=== PATIENT | female | born 1955 | race Caucasian/White ===

== ENCOUNTER 2021-06-30 08:11 | Inpatient (IN) ==
--- NOTE | 2021-06-15 10:29 | PAT Medication Instructions ---
Medication Instructions Date of Service June 15, 2021 Home Medications Medication Instructions Recorded CPAP Supplies #1 ea 12/01/18 albuterol sulfate 90 mcg/actuation 2 puffs INH Q6H PRN #3 inhaler 08/28/19 aerosol inhaler (ProAir HFA) multivitamin,[id number] (Complete Multivitamin) 1 tab PO QDD simvastatin 20 mg tablet 20 mg PO QPM Saccharomyces boulardii 250 mg capsule (Daily Probiotic (S. boulardii)) 250 mg PO QDD pantoprazole 40 mg tablet,delayed release 40 mg PO QAM zinc acetate 25 mg (zinc) capsule 25 mg PO QDD albuterol sulfate 90 mcg/actuation aerosol inhaler (ProAir HFA) 2 puffs INH Q6H PRN furosemide 20 mg tablet (Lasix) 20 mg PO DAILY PRN aspirin 325 mg tablet 325 mg PO HS diphenhydramine HCl 25 mg capsule (Benadryl) 25 mg PO HS docusate sodium 100 mg capsule (Stool Softener) 100 mg PO HS fiber 1 cap PO QAM hydrochlorothiazide 25 mg tablet 25 mg PO QAM losartan 100 mg tablet 100 mg PO QAM omega-3 fatty acids 1,000 mg capsule 1,000 mg PO QDD polyethylene glycol 3350 17 gram/dose oral powder (Miralax) 17 g PO QAM ] tiotropium bromide 2.5 mcg/actuation mist for inhalation (Spiriva Respimat) 2 puff INH QAM ASK your prescriber and surgeon aspirin 325 mg tablet 325 mg PO HS STOP taking 2 weeks before surgery omega-3 fatty acids 1,000 mg capsule 1,000 mg PO QDD DO NOT take the morning of surgery furosemide 20 mg tablet (Lasix) 20 mg PO DAILY PRN fiber 1 cap PO QAM hydrochlorothiazide 25 mg tablet 25 mg PO QAM losartan 100 mg tablet 100 mg PO QAM polyethylene glycol 3350 17 gram/dose oral powder (Miralax) 17 g PO QAM Take morning of surgery With a small sip of water, OTHERWISE NOTHING TO EAT OR DRINK AFTER MIDNIGHT: pantoprazole 40 mg tablet,delayed release 40 mg PO QAM albuterol sulfate 90 mcg/actuation aerosol inhaler (ProAir HFA) 2 puffs INH Q6H PRN (use if needed; please bring with you to hospital day of surgery if possible) tiotropium bromide 2.5 mcg/actuation mist for inhalation (Spiriva Respimat) 2 puff INH QAM Take evening before surgery multivitamin,[id number] (Complete Multivitamin) 1 tab PO QDD simvastatin 20 mg tablet 20 mg PO QPM Saccharomyces boulardii 250 mg capsule (Daily Probiotic (S. boulardii)) 250 mg PO QDD zinc acetate 25 mg (zinc) capsule 25 mg PO QDD albuterol sulfate 90 mcg/actuation aerosol inhaler (ProAir HFA) 2 puffs INH Q6H PRN (if needed) furosemide 20 mg tablet (Lasix) 20 mg PO DAILY PRN (if needed) diphenhydramine HCl 25 mg capsule (Benadryl) 25 mg PO HS docusate sodium 100 mg capsule (Stool Softener) 100 mg PO HS Other Notes If you have any questions please call us at [phone] or [phone] or [phone] or [phone]
--- NOTE | 2021-06-16 11:41 | Anesthesiology Consultation ---
Date of Service June 16, 2021 Assessment & Plan (1) Encounter for pre-operative examination: Chart Review Chart Review: Acceptable Risk for Surgery (pending surgeon ordered PCP clearance, PCP response on hypokalemia and preop Covid testing results ) and Patient seen in Pre Admission Testing - Awaiting surgeon ordered PCP clearance (scheduled 06/24/21) (will write note to PCP regarding hypokalemia) Pt has hx of COPD and gets post op wheezing at times- usually uses albuterol inhaler or does breathing treatment preop Per PAT appt on 06/16/21, patient denies any recent travel or large group a ctivities. No known Covid positive exposures or Covid related symptoms. No known Covid infection in the past 90 days. Patient is vaccinated for Covid. Preop Covid testing scheduled 06/26/21= will await results. Educated on importance of self quarantining, social distancing and wearing mask in public for the patient one week prior to surgery and after Covid testing done Teaching & Discussion Pre-Anesthesia Teaching/Discussion Notes: Instructed NPO after midnight before surgery,except medications with 15 cc of water. Medication instructions provided according to the PAT guidelines. History Surgery Operation Date: 06/30/21 12:05 Proposed Procedures p C5-C7 Anterior Cervical Discectomy and Fusion, Spinal Cord Monitoring - Robbie Coleman, Height/Weight Height: 5 ft 8 in Weight: 101.7 kg Allergies Allergy/AdvReac Type Severity Reaction Status Date / Time adhesive tape Allergy Severe Rash Verified 06/16/21 11:54 amitriptyline Allergy Severe "suicidal" Verified 06/12/21 14:22 amlodipine [From Caduet] Allergy Severe Difficulty Verified 06/12/21 14:22 Breathing atorvastatin [From Caduet] Allergy Severe Difficulty Verified 06/12/21 14:22 Breathing celecoxib [From Celebrex] Allergy Severe Difficulty Verified 06/12/21 14:22 Breathing diclofenac Allergy Severe Rash Verified 06/12/21 14:22 hydromorphone [From Dilaudid] Allergy Severe Vomiting Verified 06/12/21 14:22 Iodinated Contrast Media Allergy Severe Hives Verified 06/12/21 14:22 [Iodinated Contrast- Oral and IV Dye] iodine Allergy Severe Hives Verified 06/12/21 14:22 nortriptyline Allergy Severe "suicidal" Verified 06/12/21 14:22 oxaprozin Allergy Severe "swollen Verified 06/12/21 14:22 neck glands" phenol Allergy Severe Rash Verified 06/12/21 14:22 Medications Home Medications Medication Instructions Recorded Confirmed Last Taken multivitamin,[id number] 1 tab PO QDD 11/30/18 06/12/21 Unknown (Complete Multivitamin) simvastatin 20 mg tablet 20 mg PO QPM 11/30/18 06/12/21 Unknown CPAP Supplies #1 ea 12/01/18 06/12/21 Unknown Saccharomyces boulardii 250 mg 250 mg PO QDD cap 03/26/19 06/12/21 Unknown capsule (Daily Probiotic (S. boulardii)) pantoprazole 40 mg tablet,delayed 40 mg PO QAM 03/26/19 06/12/21 Unknown release zinc acetate 25 mg (zinc) capsule 25 mg PO QDD 03/26/19 06/12/21 Unknown albuterol sulfate 90 mcg/actuation 2 puffs INH Q6H PRN #3 inhaler 08/28/19 06/12/21 Unknown aerosol inhaler (ProAir HFA) furosemide 20 mg tablet (Lasix) 20 mg PO DAILY PRN 01/13/21 06/12/21 Unknown aspirin 325 mg tablet 325 mg PO HS 06/12/21 06/12/21 Unknown diphenhydramine HCl 25 mg capsule 25 mg PO HS 06/12/21 06/12/21 Unknown (Benadryl) docusate sodium 100 mg capsule 100 mg PO HS 06/12/21 06/12/21 Unknown (Stool Softener) fiber 1 cap PO QAM 06/12/21 06/12/21 Unknown hydrochlorothiazide 25 mg tablet 25 mg PO QAM 06/12/21 06/12/21 Unknown losartan 100 mg tablet 100 mg PO QAM 06/12/21 06/12/21 Unknown omega-3 fatty acids 1,000 mg 1,000 mg PO QDD 06/12/21 06/12/21 Unknown capsule polyethylene glycol 3350 17 17 g PO QAM 06/12/21 06/12/21 Unknown gram/dose oral powder (Miralax) tiotropium bromide 2.5 2 puff INH QAM 06/12/21 06/12/21 Unknown mcg/actuation mist for inhalation (Spiriva Respimat) Past Medical History Medical History (Updated 06/16/21 @ 15:10 by Charley Olmos PA-C) Krishnamurthy esophagus Follows routinely with EGDs Chronic obstructive pulmonary disease Rare res inhaler use > usually just when has cold Uses maintenance inhaler routinely Degenerative disc disease HX: breast cancer Right 2013 > s/p lumpectomy, axilla LN removal S/p radiation Right UE restriction Hyperlipidemia Stable with meds Hypertension Stable with meds Osteoarthritis Palpitations Hx of - 11/2019 Wore heart monitor for 21 days- no significant arrhythmias, no further issues Psoriasis Moderate to severe - has UV light therapy Sleep apnea CPAP Exercise / Class Metabolic Activity III < 4 Walking/Shop/Light housework (one flight of stairs - no chest pain, mild SOB ) Past Surgical History Surgical History H/O lymph node excision right axillary H/O melanoma excision History of ankle surgery left due to fracture with hardware removal later on History of arthroscopy left knee History of bilateral tubal ligation History of colonoscopy History of dilatation and curettage History of esophagogastroduodenoscopy (EGD) History of laminectomy lumbar History of lumpectomy of right breast History of nasal septoplasty History of root canal procedure History of tonsillectomy Past Anesthesia History No Hx of Anesthesia Complications (with exception to post op wheezing with ankle surgery - no issues subsequently as long as she uses Spirivia and albuterol inhaler preop ) and No Family Hx of Anesthesia Complications History of PONV No Hx of PONV and No Hx of Motion Sickness Social History Smoking Status: Former smoker Do You Dip or Chew Tobacco: No Smoking End Date: 1995 Hx Alcohol Use: Yes Alcohol type: beer, wine and hard liquor alcohol intake frequency: holidays/special occasions only Hx Substance Use: No substance use type: does not use Review of Systems Chronic cough- secondary to COPD -stable Occ breakthrough reflux - diet dependent Patient denies chest pain, shortness of breath, wheezing, palpitations. No hx of seizures, stroke, [place]. No hx of blood clots or blood transfusions Physical Exam Vital Signs VITALS BP 131/75 P 98 TEMP 97.9 SP02 96% RESP 16 Constitutional no acute distress ENMT Mouth: no TMJ clicking Thyromental Distance: > or= 3.5 Finger Breadths (4.0) Mallampati Class: II Capped to molars Neck + limited neck extension (significant ) Respiratory normal respiratory effort; no respiratory distress Auscultation: lungs clear to auscultation bilaterally and + diminished lung sounds (generalizede throughout ); no wheezes Cardiovascular Rate/Rhythm: regular rate and regular rhythm Heart Sounds: no murmur Vessels: no carotid bruit Musculoskeletal Spine: + pain with cervical ROM Extremities: extremities normal to inspection Psychiatric Orientation: alert Lab Results Anesthesia Preop Results Results Anesthesia Widget: WBC 8.01 K/uL (4.8-10.8) 06/16/21 Hgb 12.8 g/dL (12.0-16.0) 06/16/21 Hct 37.4 % (37-47) 06/16/21 Plt 349 K/uL (130-400) 06/16/21 Na 136 mmol/L (136-145) 06/16/21 K 3.1 mmol/L (3.5-5.1) L 06/16/21 Cl 100 mmol/L (98-107) 06/16/21 CO2 25 mmol/L (21-32) 06/16/21 BUN 19 mg/dl (6-23) 06/16/21 Creat 0.86 mg/dl (0.6-1.2) 06/16/21 Glucose Level 156 mg/dl (70-99(Fasting)) H 06/16/21 PT 11.0 Seconds (9.0-12.0) 06/16/21 PTT 24.8 Seconds (21.0-31.0) 06/16/21 INR 1.0 (0.9-1.1) 06/16/21 Urine Color Yellow 06/16/21 Urine Appearance Clear (Clear) 06/16/21 Urine pH 5.5 (4.5-7.5) 06/16/21 Urine Specific [place] 1.008 (1.000-1.030) 06/16/21 Urine Protein Negative (Negative) 06/16/21 Urine Glucose (UA) Negative (Negative) 06/16/21 Urine Ketones Negative (Negative) 06/16/21 Urine Blood Negative (Negative) 06/16/21 Urine Nitrite Negative (Negative) 06/16/21 Urine Bilirubin Negative (Negative) 06/16/21 Urine Urobilinogen Negative (Negative) 06/16/21 Urine Leukocyte Esterase Negative (Negative) 06/16/21 Blood Type B Positive 06/16/21 Antibody Screen NEGATIVE 06/16/21 Lab Comments: Hypokalemia - did send note to PCP to address at upcoming preop appt Testing Electrocardiogram Date: 02/19/21 Sinus rhythm at 83 bpm. Normal EKG per confirming provider. Chest X-Ray Date: 02/23/21 Findings: + NAD Pulmonary Function Test Date: 02/03/21 Adequate test. No obstruction. Insignificant bronchodilator response. Normal TLC. Mild decrease in DLCO which correlates for [facility]. Other Testing Event monitor 12/28/2019 = sinus rhythm. Frequent PACs. Short runs PAT: "Lightheaded"
[~2021-06-30 08:11] MED LIST: ACETAMINOPHEN 500 MG TAB PO SCH; GABAPENTIN 300 MG CAP PO SCH; LR 15ML/HR IV SCH
[2021-06-30] MEDS ORDERED: MIDAZOLAM HCL 1 MG/ML 2ML VIAL ONE (08:16)
[2021-06-30] MEDS ORDERED: fentaNYL citrate 100 MCG/2 ML VIAL ONE (08:16)
[2021-06-30] MEDS ORDERED: PHENYLEPHRINE HCL 10 MG/ML VIAL ONE (08:57)
[2021-06-30] MEDS ORDERED: ePHEDrine sulfate 50 MG/ML AMP ONE (08:57)
[2021-06-30] MEDS ORDERED: ceFAZolin 330 MG/ML 1 GM VIAL ONE (09:12)
--- NOTE | 2021-06-30 09:12 | History & Physical Bridge Note ---
Date of Service June 30, 2021 History & Physical Bridge Note I have examined the patient, reviewed the History & Physical and in the interval since the performance of the History & Physical I have noted the following changes of clinical significance: no changes noted
--- NOTE | 2021-06-30 09:13 | History & Physical Report ---
Date of Service June 30, 2021 Assessment & Plan (1) Cervical stenosis of spinal canal: Plan: C5-C7 anterior cervical discectomy and fusion History of Present Illness Chief Complaint: Neck and arm pain Primary Care Provider: Margarita Lopez PA-C This is a 65-year-old female who presents with worsening cervical radiculopathy. Of failed extensive course of nonoperative care she is here for surgical invention. Allergies Allergy/AdvReac Type Severity Reaction Status Date / Time adhesive tape Allergy Severe Rash Verified 06/30/21 08:40 amitriptyline Allergy Severe "suicidal" Verified 06/30/21 08:40 amlodipine [From Caduet] Allergy Severe Difficulty Verified 06/30/21 08:40 Breathing atorvastatin [From Caduet] Allergy Severe Difficulty Verified 06/30/21 08:40 Breathing celecoxib [From Celebrex] Allergy Severe Difficulty Verified 06/30/21 08:40 Breathing diclofenac Allergy Severe Rash Verified 06/30/21 08:40 hydromorphone [From Dilaudid] Allergy Severe Vomiting Verified 06/30/21 08:40 Iodinated Contrast Media Allergy Severe Hives Verified 06/30/21 08:40 [Iodinated Contrast- Oral and IV Dye] iodine Allergy Severe Hives Verified 06/30/21 08:40 nortriptyline Allergy Severe "suicidal" Verified 06/30/21 08:40 oxaprozin Allergy Severe "swollen Verified 06/12/21 14:22 neck glands" phenol Allergy Severe Rash Verified 06/12/21 14:22 Home Medications Medication Instructions Recorded Confirmed Type multivitamin,[id number] 1 tab PO QDD 11/30/18 06/30/21 History (Complete Multivitamin) simvastatin 20 mg tablet 20 mg PO QPM 11/30/18 06/30/21 History CPAP Supplies #1 ea 12/01/18 06/12/21 Rx Saccharomyces boulardii 250 mg 250 mg PO QDD cap 03/26/19 06/30/21 History capsule (Daily Probiotic (S. boulardii)) pantoprazole 40 mg tablet,delayed 40 mg PO QAM 03/26/19 06/30/21 History release zinc acetate 25 mg (zinc) capsule 25 mg PO QDD 03/26/19 06/30/21 History furosemide 20 mg tablet (Lasix) 20 mg PO DAILY PRN 01/13/21 06/30/21 History aspirin 325 mg tablet 325 mg PO HS 06/12/21 06/30/21 History diphenhydramine HCl 25 mg capsule 25 mg PO HS 06/12/21 06/30/21 History (Benadryl) docusate sodium 100 mg capsule 100 mg PO HS 06/12/21 06/30/21 History (Stool Softener) fiber 1 cap PO QAM 06/12/21 06/30/21 History hydrochlorothiazide 25 mg tablet 25 mg PO QAM 06/12/21 06/30/21 History losartan 100 mg tablet 100 mg PO QAM 06/12/21 06/30/21 History omega-3 fatty acids 1,000 mg 1,000 mg PO QDD 06/12/21 06/30/21 History capsule polyethylene glycol 3350 17 17 g PO QAM 06/12/21 06/30/21 History gram/dose oral powder (Miralax) tiotropium bromide 2.5 2 puff INH QAM 06/12/21 06/30/21 History mcg/actuation mist for inhalation (Spiriva Respimat) albuterol sulfate 90 mcg/actuation 2 puff INH Q6H PRN #1 inhaler 06/23/21 06/30/21 Rx aerosol inhaler (ProAir HFA) chlorpheniramine maleate 4 mg 4 mg PO Q6H #30 tab 06/23/21 06/30/21 Rx tablet (Allergy (chlorpheniramine)) fluticasone propionate 50 2 spray INTRANASAL DAILY #16 g 06/23/21 06/30/21 Rx mcg/actuation nasal spray,suspension (Flonase Allergy Relief) pseudoephedrine HCl 30 mg tablet 30 mg PO Q12H #30 tab 06/23/21 06/30/21 Rx (Sudafed) Past Med/Surg History Medical History (Updated 06/30/21 @ 09:13 by Robbie Coleman DO) Krishnamurthy esophagus Follows routinely with EGDs Chronic obstructive pulmonary disease Rare res inhaler use > usually just when has cold Uses maintenance inhaler routinely Degenerative disc disease HX: breast cancer Right 2013 > s/p lumpectomy, axilla LN removal S/p radiation Right UE restriction Hyperlipidemia Stable with meds Hypertension Stable with meds Osteoarthritis Palpitations Hx of - 11/2019 Wore heart monitor for 21 days- no significant arrhythmias, no further issues Psoriasis Moderate to severe - has UV light therapy Sleep apnea CPAP Surgical History H/O lymph node excision right axillary H/O melanoma excision History of ankle surgery left due to fracture with hardware removal later on History of arthroscopy left knee History of bilateral tubal ligation History of colonoscopy History of dilatation and curettage History of esophagogastroduodenoscopy (EGD) History of laminectomy lumbar History of lumpectomy of right breast History of nasal septoplasty History of root canal procedure History of tonsillectomy Social History Smoking Status: Former smoker Tobacco Type: Cigarettes Age Started Using Tobacco: 20; packs per day: 1.5; Years Smoked: 20; Smoking End Date: 1995; Second Hand Exposure: No; Do You Dip or Chew Tobacco: No; Tobacco Cessation Education Requested by Patient: No Hx Alcohol Use: Yes Alcohol type: beer, wine and hard liquor Hx Substance Use: No Preferred Language: Georgian Communication Ability: Effective [employer] Welder Required: No Beliefs That Will Affect Care: None Current Living Situation: Spouse Other Information That Helps Us Care for You: No Feels Safe at Home: Yes Safety Concerns: Feels Safe At This Time Assistive Devices: CPAP and Glasses Physical Exam Physical Exam: Patient is alert and oriented Heart regular rhythm Lungs clear Results & Data ([facility]) Vital Signs (Past 12 Hours) Vital Signs Temp Pulse Resp BP Pulse Ox 06/30/21 08:33 36.7 C 96 H 20 167/94 H 96
[2021-06-30] MEDS ORDERED: ONDANSETRON INJ 2 MG/ML 2 ML VIAL IV PRN ×2 (09:19→13:12)
[2021-06-30] MEDS ORDERED: ATROPINE SULFATE 0.1 MG/ML 10ML SYR IV PRN (09:19)
[2021-06-30] MEDS ORDERED: ePHEDrine sulfate 50 MG/ML AMP IV PRN (09:19)
[2021-06-30] MEDS: ceFAZolin 2000MG 2,000 MG/15 ML SYR IV SCH ×3 (09:34→18:13)
[2021-06-30] MEDS ORDERED: FLOSEAL HEMOSTATIC MATRIX 10ML TOP ONE (09:56)
[2021-06-30] MEDS ORDERED: LIDOCAINE 2% 2 ML VIAL/AMP(20MG/ML) INFIL ONE (10:10)
[2021-06-30] MEDS ORDERED: SUCCINYLCHOLINE CHLORIDE 20 MG/ML 10 ML VIAL IV ONE (10:10)
[2021-06-30] MEDS ORDERED: ONDANSETRON INJ 2 MG/ML 2 ML VIAL ONE (10:10)
[2021-06-30] MEDS ORDERED: LARYING-O-JET KIT (LTA) ONE (10:10)
[2021-06-30] MEDS ORDERED: ROCURONIUM BROMIDE 10 MG/ML 5 ML VIAL IV ONE (10:10)
[2021-06-30] MEDS ORDERED: PROPOFOL IV EMULSION 10 MG/ML 20 ML VIAL IV ONE (10:10)
[2021-06-30] MEDS ORDERED: DEXAMETHASONE SOD INJ 4 MG/ML VIAL ONE (10:10)
--- NOTE | 2021-06-30 11:16 | Operative Report ---
Post Operative Report Pre & Post Diagnosis Operation Date: 06/30/21 09:45 Pre-Op Diagnosis: Spinal Stenosis, Cervical Region Post-Op Diagnosis: Spinal Stenosis, Cervical Region I identified the patient and participated in the time-out.: Yes Procedure Operation Date: 06/30/21 09:45 Actual Procedures Anterior cervical discectomy with bilateral foraminotomies C5-C6 C6-C7. #2 anterior cervical arthrodesis C5-C6 C6-C7. #3 placement of 7 mm spiral cage at C5-C6 and 8 mm at C6-C7 both filled with I factor. #4 application of rosenberg plate and screws from C5-C7.. Surgeon Robbie Coleman, DO [employer] Supervisor None Estimated Blood Loss 10 Findings See Below The patient is 5 foot 8 inches tall weighing 100 kg with a BMI in excess of 33. The patient's body habitus did contribute to significant technical difficulty required deeper retractors longer instruments in order to perform her procedure. This at least 50% increase to the operative time. Specimens None Indications This is a 65-year-old female who presents with above-mentioned diagnosis after failing course of nonoperative care she is here for surgical invention. Description of Procedure Patient was met with identified informed consent obtained. Patient was then taken to the operative suite underwent ablation placed in the supine position the Gilson table at [place] barrel header. All bony prominences well-padded eyes inspected to ensure no external pressure placed upon the. This point the anterior cervical spine was prepped and draped in normal sterile fashion. The assistance of fluoroscopy identified the C5-6 vertebral body and a transverse incision was placed along the right anterior aspect of the cervical spine overlying this region. Blunt dissection was then carried out down to and exposing the anterior cervical spine from C5-C7. Self-retaining retractors placed. Then form a complete discectomy of C5-C6 out to the uncovertebral joints bilaterally. [place] distracting pins were utilized. Removed all posterior annular fibers longitudinal ligament bilateral foraminotomies pe rformed. Endplates burred to subcortical bleeding bone and 7 mm spiral cage filled with I factor tapped in position. Distracting apparatus was removed and I proceeded to C6-C7. Again complete discectomy performed out to the uncovertebral joints bilaterally. [place] distracting pins again utilized. Removed all posterior annular fibers longitudinal ligament bilateral foraminotomies performed. Endplates burred to subcortically bone and an 8 mm spiral cage filled with I factor tapped in position. Distracting apparatus was removed rosenberg plate and screws applied with the assistance of fluoroscopy. Incision was then copiously irrigated explored to ensure no demonstrate surrounding structures remaining bleeding. 10 round JOHANNY drain inserted. Incision was then closed with 2 Vicryl in the fascia 4 Monocryl for final skin closure. Steri-Strips dressings placed. Please note spinal cord morning was utilized at the procedure. I attest to the content of the Intraoperative Record and any orders documented therein. Any exceptions are noted below.
[2021-06-30] MEDS: fentaNYL citrate 100 MCG/2 ML VIAL IV PRN ×4 (11:40→12:52)
--- NOTE | 2021-06-30 12:08 | Fluoroscopy Report ---
INTRAOPERATIVE RADIOGRAPHS CLINICAL HISTORY: C5-C7 spinal fusion. Fluoroscopy time: 15 seconds. FINDINGS: 3 spot fluoroscopic views of the cervical spine are presented. There has been discectomy at C5-C6 and C6-C7 with anterior fusion at C5-C7. The orthopedic hardware appears intact. An endotrache al tube is in place. IMPRESSION: Intraoperative images from cervical spinal fusion surgery as above. Electronically signed by: John Vital M.D. 06/30/2021 12:06 PM
[2021-06-30] MEDS ORDERED: MoRPHine SULFATE 2 MG/ML CARP IV PRN (13:12)
[2021-06-30] MEDS ORDERED: diphenhydrAMINE Capsule 25 MG CAP PO PRN (13:12)
[2021-06-30] MEDS ORDERED: dexAMETHasone 8 MG in SYRINGE 0 ML IV PRN (13:12)
[2021-06-30] MEDS ORDERED: traMADol HCL 50 MG TABLET PO PRN (13:12)
[2021-06-30] MEDS ORDERED: FUROSEMIDE 20 MG TAB PO PRN (13:12)
[2021-06-30] MEDS ORDERED: DO NOT ADMINISTER FLU VACCINE PRN (13:12)
[2021-06-30] MEDS ORDERED: DO NOT ADMINISTER PNEUMOCOCCAL VACCINE PRN (13:12)
[2021-06-30] MEDS ORDERED: ONDANSETRON 4 MG OD TAB PO PRN (13:12)
[2021-06-30] MEDS ORDERED: ACETAMINOPHEN 1,000 MG/100 ML VIAL IV PRN (13:12)
[2021-06-30] MEDS ORDERED: RACEPINEPHRINE 2.25% NEBU SOLN 0.5 ML VIAL INH PRN (13:12)
[2021-06-30] MEDS ORDERED: ALUMINUM/MAGNESIUM SUSP 30 ML UDC PO PRN (13:12)
[2021-06-30] MEDS ORDERED: METOCLOPRAMIDE HCL INJ 5 MG/ML 2 ML VIAL IV PRN (13:12)
[2021-06-30] MEDS ORDERED: LORazepam 0.5 MG TAB PO PRN (13:12)
[2021-06-30] MEDS ORDERED: SOD PHOSPHATE/SOD BIPHOSPHATE ENEMA 132 ML BTL PR PRN (13:12)
[2021-06-30] MEDS ORDERED: bisacodyL 10 MG SUPP PR PRN (13:12)
[2021-06-30] MEDS ORDERED: ACETAMINOPHEN 500 MG TAB PO PRN (13:12)
[2021-06-30] MEDS ORDERED: LORazepam 2 MG/1 ML VIAL IV PRN (13:12)
[2021-06-30] MEDS ORDERED: MAGNESIUM HYDROXIDE SUSP 30 ML UDC PO PRN (13:12)
[2021-06-30] MEDS ORDERED: hydrOXYzine HCl 25 MG TAB PO PRN (13:12)
[2021-06-30] MEDS ORDERED: FAMOTIDINE 20 MG TAB PO PRN (13:12)
[2021-06-30] MEDS ORDERED: PROMETHAZINE HCL 12.5 MG in SODIUM CHLORIDE 0.9% 50 ML IV PRN (13:12)
[2021-06-30] MEDS ORDERED: NALOXONE HCL 0.4 MG/1 ML VIAL/CARP IV PRN (13:12)
--- NOTE | 2021-06-30 13:14 | Anesthesiology Progress Note ---
Date of Service June 30, 2021 Anesthesia Post Procedure Vital Signs Vital Signs: Temp Pulse Pulse Resp BP Pulse Ox 06/30/21 13:10 91 H 17 146/80 H 97 06/30/21 13:00 87 22 146/88 H 99 06/30/21 12:50 97.2 F L 89 20 149/78 H 97 06/30/21 12:40 86 14 144/80 H 92 06/30/21 12:30 82 14 142/78 H 99 06/30/21 12:20 81 14 141/72 H 100 06/30/21 12:10 85 18 147/77 H 100 06/30/21 12:00 86 13 113/76 100 06/30/21 11:50 84 14 137/75 100 06/30/21 11:40 83 16 140/76 97 06/30/21 11:30 87 15 147/71 H 98 06/30/21 11:22 98.1 F 83 17 134/81 98 06/30/21 08:33 98.1 F 96 H 20 167/94 H 96 Pain Intensity Right Neck: Pain Intensity: 3 Transfer of Care Handoff Completed per policy Notes Mental Status: alert / awake / arousable and participated in evaluation Patient Amnestic to Procedure: Yes Nausea / Vomiting: adequately controlled Pain: adequately controlled Airway Patency, RR, SpO2: stable & adequate BP & HR: stable & adequate Hydration State: stable & adequate Anesthetic Complications: no major complications apparent and Pt Satisfied with anesthetic care
[2021-06-30] MEDS ORDERED: oxyCODONE HCL IR 5 MG TAB (IMMEDIATE RELEASE) ONE (13:19)
[2021-06-30] MEDS: SODIUM CHLORIDE 0.9% 1000ML 1,000 ML IV SCH (15:23)
--- NOTE | 2021-06-30 15:30 | Hospitalist Consultation ---
Date of Consultation June 30, 2021 Assessment & Plan (1) Cervical stenosis of spinal canal: -Planned ACDF procedure today with Dr. Coleman without complications. Denies pain, numbness/tingling, motor deficit, chest pain, palpitations, SOB -Defer pain/IVF/abx/drain/bowel regimen management to primary team. -CBC, CMP in AM. (2) Chronic obstructive pulmonary disease: -Chronic, stable. -Continue Spiriva Respimat in the morning, albuterol inhaler as needed. -Currently on chlorpheniramine, Sudafed, Flonase for chronic cough. Will hold Sudafed and chlorpheniramine until tomorrow morning. (3) Sleep apnea: -Chronic, stable. -CPAP at night. -Settin cm of water. (4) Hypertension: -Chronic, stable. -On HCTZ and losartan at home. Hold today, may restart tomorrow. -Continue to monitor BP. (5) GERD (gastroesophageal reflux disease): -With Krishnamurthy's esophagus, follows with GI. -Continue Protonix 40 mg daily. (6) Hyperlipidemia: -Continue simvastatin 20 mg daily. (7) HX: breast cancer: -2014, s/p lumpectomy and radiation. -With occasional edema, takes Lasix 20 mg prn, reports using only a few times/month. Will hold this until tomorrow 07/01. (8) Psoriasis: -UV light therapy, no medications at this time. Supervising Physician Co-Signing Physician Notes Attending Attestation and Consult Note - Pt seen/examined, chart reviewed, care plan d/w ALMAZ Barker. I agree w/ the frausto components of her documentation. 65yo female with COPD, HTN, ROSE presented today for cervical spine anterior dis kectomy with fusion C5-C7. I saw her post-op on ortho floor. Mainly c/o soreness of neck especially on the right but denied dyspnea, chest pain, abd pain or nausea. Also c/o feeling tired. PMH/PSH/allergies/meds/sochx/famhx - reviewed VSS, no fever gen - looks tired, mildly uncomfortable, but alert neck - c-collar in place; dressings anterior neck intact and clean - no blood; drain in place heart - RRR, s1 s2 lungs - CTA b/l, mildly decreased BS bases abd - softly distended, BS+, NT ext - no edema neuro - handgrips 5/5 b/l; strength b/l legs 5/5 A/P: 1. cervical spine stenosis s/p diskectomy/fusion 2. HTN - HOLD the CHERY and HCTZ pending am labs tomorrow 3. ROSE - if patient stays for lengthy period of time will have her family bring in CPAP device 4. COPD - no flare at this time with stable O2 sats Suraj Hough MD History of Present Illness Reason for Consultation: medical management Requesting Physician: Robbie Coleman DO Attending Physician: Robbie Coleman DO History of Present Illness Patient is a 65 y/o female with a PMH of COPD, ROSE, HTN, HLD, psoriasis, breast cancer in 2014 s/p radiation, and GERD with Krishnamurthy's esophagus who presents today for scheduled C5-[address] Coleman due to worsening cervical radiculopathy. Previously had been experiencing muscle spasms, numbness/tingling in right arm down to first three digits, as well as dizziness with sudden head movements. Failed outpatient tx. She is currently resting comfortably in bed without chest pain/palpitations, SOB, weakness, numbness/tingling, motor deficits. She has mild pain at the site of her incision, notes an improvement in her RUE numbness/tingling. Without any complaints. Allergies Allergy/AdvReac Type Severity Reaction Status Date / Time adhesive tape Allergy Severe Rash Verified 06/30/21 08:40 amitriptyline Allergy Severe "suicidal" Verified 06/30/21 08:40 amlodipine [From Caduet] Allergy Severe Difficulty Verified 06/30/21 08:40 Breathing atorvastatin [From Caduet] Allergy Severe Difficulty Verified 06/30/21 08:40 Breathing celecoxib [From Celebrex] Allergy Severe Difficulty Verified 06/30/21 08:40 Breathing diclofenac Allergy Severe Rash Verified 06/30/21 08:40 hydromorphone [From Dilaudid] Allergy Severe Vomiting Verified 06/30/21 08:40 Iodinated Contrast Media Allergy Severe Hives Verified 06/30/21 08:40 [Iodinated Contrast- Oral and IV Dye] iodine Allergy Severe Hives Verified 06/30/21 08:40 nortriptyline Allergy Severe "suicidal" Verified 06/30/21 08:40 oxaprozin Allergy Severe "swollen Verified 06/12/21 14:22 neck glands" phenol Allergy Severe Rash Verified 06/12/21 14:22 Home Medications Medication Instructions Recorded Confirmed Type multivitamin,[id number] 1 tab PO QDD 11/30/18 06/30/21 History (Complete Multivitamin) simvastatin 20 mg tablet 20 mg PO QPM 11/30/18 06/30/21 History CPAP Supplies #1 ea 12/01/18 06/12/21 Rx Saccharomyces boulardii 250 mg 250 mg PO QDD cap 03/26/19 06/30/21 History capsule (Daily Probiotic (S. boulardii)) pantoprazole 40 mg tablet,delayed 40 mg PO QAM 03/26/19 06/30/21 History release zinc acetate 25 mg (zinc) capsule 25 mg PO QDD 03/26/19 06/30/21 History furosemide 20 mg tablet (Lasix) 20 mg PO DAILY PRN 01/13/21 06/30/21 History aspirin 325 mg tablet 325 mg PO HS 06/12/21 06/30/21 History diphenhydramine HCl 25 mg capsule 25 mg PO HS 06/12/21 06/30/21 History (Benadryl) docusate sodium 100 mg capsule 100 mg PO HS 06/12/21 06/30/21 History (Stool Softener) fiber 1 cap PO QAM 06/12/21 06/30/21 History hydrochlorothiazide 25 mg tablet 25 mg PO QAM 06/12/21 06/30/21 History losartan 100 mg tablet 100 mg PO QAM 06/12/21 06/30/21 History omega-3 fatty acids 1,000 mg 1,000 mg PO QDD 06/12/21 06/30/21 History capsule polyethylene glycol 3350 17 17 g PO QAM 06/12/21 06/30/21 History gram/dose oral powder (Miralax) tiotropium bromide 2.5 2 puff INH QAM 06/12/21 06/30/21 History mcg/actuation mist for inhalation (Spiriva Respimat) albuterol sulfate 90 mcg/actuation 2 puff INH Q6H PRN #1 inhaler 06/23/21 06/30/21 Rx aerosol inhaler (ProAir HFA) chlorpheniramine maleate 4 mg 4 mg PO Q6H #30 tab 06/23/21 06/30/21 Rx tablet (Allergy (chlorpheniramine)) fluticasone propionate 50 2 spray INTRANASAL DAILY #16 g 06/23/21 06/30/21 Rx mcg/actuation nasal spray,suspension (Flonase Allergy Relief) pseudoephedrine HCl 30 mg tablet 30 mg PO Q12H #30 tab 06/23/21 06/30/21 Rx (Sudafed) oxycodone 5 mg tablet 5 mg PO Q6H PRN #20 tab 07/01/21 Rx tramadol 50 mg tablet 50 mg PO Q6H PRN #20 tab 07/01/21 Rx Patient History Medical History (Updated 06/30/21 @ 15:26 by Barbara Barker PA-C) Krishnamurthy esophagus Follows routinely with EGDs Chronic obstructive pulmonary disease Rare res inhaler use > usually just when has cold Uses maintenance inhaler routinely Degenerative disc disease HX: breast cancer Right 2013 > s/p lumpectomy, axilla LN removal S/p radiation Right UE restriction Hyperlipidemia Stable with meds Hypertension Stable with meds Osteoarthritis Palpitations Hx of - 11/2019 Wore heart monitor for 21 days- no significant arrhythmias, no further issues Psoriasis Moderate to severe - has UV light therapy Sleep apnea CPAP Surgical History H/O lymph node excision right axillary H/O melanoma excision History of ankle surgery left due to fracture with hardware removal later on History of arthroscopy left knee History of bilateral tubal ligation History of colonoscopy History of dilatation and curettage History of esophagogastroduodenoscopy (EGD) History of laminectomy lumbar History of lumpectomy of right breast History of nasal septoplasty History of root canal procedure History of tonsillectomy Social History Smoking Status: Former smoker Tobacco Type: Cigarettes Age Started Using Tobacco: 20; packs per day: 1.5; Years Smoked: 20; Smoking End Date: 1995; Second Hand Exposure: No; Do You Dip or Chew Tobacco: No; Tobacco Cessation Education Requested by Patient: No Hx Alcohol Use: Yes Alcohol type: beer, wine and hard liquor Hx Substance Use: No Preferred Language: Azeri Communication Ability: Effective Predatory Hunter Required: No Beliefs That Will Affect Care: None Current Living Situation: Spouse Other Information That Helps Us Care for You: No Feels Safe at Home: Yes Safety Concerns: Feels Safe At This Time Assistive Devices: Walker Review of Systems Review of Systems: Constitutional: No fever, sweats or chills Eyes: No diplopia, no worsening or blurred vision ENT: normal hearing, no trouble swallowing Respiratory: No cough, sputum, dyspnea at rest or on exertion Cardiovascular: No chest pain, tightness or palpitations Abdomen: No pain, nausea, vomiting, diarrhea or constipation Musculoskeletal: No joint pain, calf pain, swelling Neurologic: No weakness, numbness/tingling, or balance problems Psychiatric: No anxiety or depression Skin: No rash or itch Physical Exam Physical Exam: General: awake, alert, no apparent distress, no pain; cervical collar in place Head: Normocephalic, atraumatic ENT: PERRL, EOMI, no pharyngeal exudate, mucous membranes moist Chest: Clear to auscultation, on room air, no adventitious breath sounds Cardiac: Regular rate and rhythm, no murmur, no JVD, normal peripheral pulses, good capillary refill Abdominal: NABS x 4 quadrants, soft, nontender to palpation, no rebound, guarding or tenderness Extremities: Normal inspection, no peripheral edema or erythema, calfs nontender to palpation Psych: Normal mood and affect Neuro: AAO x 3, strength intact bilaterally and rated 5/5, no motor deficits, speech is clear, no peripheral sensory deficits Skin: no rash or erythema Results & Data Results & Data ([facility]) Vital Signs (Past 12 Hours) Vital Signs Temp Pulse Pulse Resp BP Pulse Ox 06/30/21 14:15 96 H 14 143/72 H 95 06/30/21 14:00 94 H 17 141/85 H 94 06/30/21 13:45 90 17 139/61 93 06/30/21 13:30 90 13 135/75 99 06/30/21 13:15 36.9 C 88 13 139/79 95 06/30/21 13:10 91 H 17 146/80 H 97 06/30/21 13:00 87 22 146/88 H 99 06/30/21 12:50 36.2 C L 89 20 149/78 H 97 06/30/21 12:40 86 14 144/80 H 92 06/30/21 12:30 82 14 142/78 H 99 06/30/21 12:20 81 14 141/72 H 100 06/30/21 12:10 85 18 147/77 H 100 06/30/21 12:00 86 13 113/76 100 06/30/21 11:50 84 14 137/75 100 06/30/21 11:40 83 16 140/76 97 06/30/21 11:30 87 15 147/71 H 98 06/30/21 11:22 36.7 C 83 17 134/81 98 06/30/21 08:33 36.7 C 96 H 20 167/94 H 96 Diagnostic Findings Cervical Spine X-Ray 06/30/21 09:45 INTRAOPERATIVE RADIOGRAPHS CLINICAL HISTORY: C5-C7 spinal fusion. Fluoroscopy time: 15 seconds. FINDINGS: 3 spot fluoroscopic views of the cervical spine are presented. There has been discectomy at C5-C6 and C6-C7 with anterior fusion at C5-C7. The orthopedic hardware appears intact. An endotracheal tube is in place. IMPRESSION: Intraoperative images from cervical spinal fusion surgery as above. Electronically signed by: John Vital M.D. 06/30/2021 12:06 PM PG Care Time/CCT Total # of Minutes Spent Total Time Spent with Patient: Total time spent is greater than 50% in coordination of care (as documented) at patient's floor/unit and/or counseling patient: Coding Level of Care Code 49906 Inpt Consult Level 3 Diagnoses Cervical stenosis of spinal canal M48.02 Chronic obstructive pulmonary disease J44.9 Sleep apnea G47.30 Hypertension I10 Hyperlipidemia E78.5 HX: breast cancer Z85.3 Psoriasis L40.9 GERD (gastroesophageal reflux disease) K21.9
[2021-06-30] MEDS ORDERED: MULTIVITAMIN TAB PO SCH (16:30)
[2021-06-30] MEDS ORDERED: ZINC SULFATE 220 MG CAPSULE PO SCH (16:30)
[2021-06-30] MEDS ORDERED: SACCHAROMYCES BOULARDII 250 MG CAP PO SCH (16:30)
[2021-06-30] MEDS: oxyCODONE HCL IR 5 MG TAB (IMMEDIATE RELEASE) PO PRN ×2 (17:33→23:20)
[2021-06-30] MEDS ORDERED: SIMVASTATIN 20 MG TAB PO SCH (21:00)
[2021-06-30] MEDS ORDERED: diphenhydrAMINE Capsule 25 MG CAP PO SCH (21:00)
[2021-06-30] MEDS ORDERED: DOCUSATE SODIUM/SENNA 50/8.6MG TAB PO SCH (21:00)
[2021-06-30] MEDS ORDERED: PSEUDOEPHEDRINE HCL 30 MG TAB PO SCH (21:00)
[2021-06-30] MEDS ORDERED: DOCUSATE SODIUM 100 MG CAP PO SCH (21:00)
[2021-07-01] MEDS: ceFAZolin 2000MG 2,000 MG/15 ML SYR IV SCH (01:12)
[2021-07-01] MEDS: SODIUM CHLORIDE 0.9% 1000ML 1,000 ML IV SCH (01:19)
[2021-07-01] MEDS: oxyCODONE HCL IR 5 MG TAB (IMMEDIATE RELEASE) PO PRN ×2 (03:55→13:51)
[2021-07-01] MEDS: POLYETHYLENE (MIRALAX) 17 GM PACK PO SCH ×2 (05:20→12:23)
[2021-07-01 06:48] LABS: Basophils # (auto) 0.02 K/uL (0-0.2); Basophils % (auto) 0.2 %; Eosinophils # (auto) 0.09 K/uL (0-0.5); Eosinophils % (auto) 0.8 %; Hematocrit (blood only) 32.5 % (37-47); Hemoglobin 10.9 g/dL (12.0-16.0); Immature Granulocytes # (auto) 0.03 K/uL (0.00-0.02); Immature Granulocytes % (auto) 0.3 %; Lymphocytes # (auto) 2.61 K/uL (1.2-3.4); Lymphocytes % (auto) 24.1 %; Mean Corpuscular Hemoglobin 30.4 pg (25-34); Mean Corpuscular Hgb Conc 33.5 g/dL (32-36); Mean Corpuscular Volume 90.5 fL (80-100); Mean Platelet Volume 10.1 fL (7.4-10.4); Monocytes # (auto) 0.66 K/uL (0.11-0.59); Monocytes % (auto) 6.1 %; Neutrophils # (auto) 7.44 K/uL (1.4-6.5); Neutrophils % (auto) 68.5 %; Platelet Count 311 K/uL (130-400); RDW Coefficient of Variation 13.5 % (11.5-14.5); RDW Standard Deviation 44.7 fL (36.4-46.3); Red Blood Count 3.59 M/uL (4.2-5.4); White Blood Count 10.85 K/uL (4.8-10.8)
[2021-07-01 07:21] LABS: Albumin Globulin Ratio 1.1 (0.9-2); Albumin Level 3.5 gm/dl (3.4-5.0); BUN Creatinine Ratio 15.6 (10-20); Bilirubin,Total 0.4 mg/dl (0.2-1.0); Calcium 8.6 mg/dl (8.5-10.1); Creatinine Clr Calc Pharmacy 88.9 ml/min; Est GFR (African American) 93.3 ml/min; Est GFR (Non-African American) 80.5 ml/min; Globulin 3.3 gm/dl (2.5-4.0); Potassium 3.5 mmol/L (3.5-5.1); Total Protein 6.8 gm/dl (6.0-8.3)
[2021-07-01] MEDS ORDERED: LOSARTAN POTASSIUM 50 MG TAB PO SCH (09:00)
[2021-07-01] MEDS ORDERED: dexAMETHasone 6 MG in SYRINGE 0 ML IV SCH (09:00)
[2021-07-01] MEDS ORDERED: hydroCHLOROthiazide 25 MG TAB PO SCH (09:00)
[2021-07-01] MEDS ORDERED: NON-FORMULARY MEDICATION (Fiber Capsule) PO SCH (09:00)
[2021-07-01] MEDS ORDERED: UMECLIDINIUM BROMIDE 62.5MCG/BLISTER 7 PUFFS/INHALER INH SCH (09:00)
[2021-07-01] MEDS ORDERED: PANTOprazole 40 MG TAB PO SCH (09:00)
[2021-07-01] MEDS ORDERED: FLUTICASONE PROPIONATE NA SPR 16 GM BTL SCH (09:00)
--- NOTE | 2021-07-01 11:58 | Hospitalist Progress Note ---
Date of Service July 01, 2021 Assessment & Plan (1) Cervical stenosis of spinal canal: Plan: POD #1 s/p anterior cervical diskectomy with fusion. Labs and vitals stable. Tolerating liquid diet. Dr Coleman plans to d/c home today. I checked with Dr Coleman and resumption of CPAP is permissible during her recovery at home (uses CPAP for ROSE). (2) Chronic obstructive pulmonary disease: Plan: stable, no flare. cont inhalers (3) Sleep apnea: Plan: ok to resume CPAP upon return home per Dr Coleman (4) Hypertension: Plan: resume losartan today if SBPs remain >140 after losartan is resumed then also restart HCTZ (5) GERD (gastroesophageal reflux disease): Plan: With Krishnamurthy's esophagus, follows with GI. Continue Protonix 40 mg daily. (6) Hyperlipidemia: Plan: Continue simvastatin 20 mg daily. (7) HX: breast cancer: Plan: 2015, s/p lumpectomy and radiation (8) Psoriasis: Plan: Mild dysphagia - patient counseled that if this persists at home beyond just a few days she should let Dr Coleman know about this right away. Discussed constipation Rx. Discussed BP meds. From medical standpoint ok for d/c home. Admission and Anticipated Discharge Date Admission Date: June 30, 2021 Subjective pt slept poorly overnight due to pain, the cervical collar, etc. again feels tired. was able to tolerate liquids for breakfast. some minor swallowing difficulty. passing flatus but no stool. no nausea or emesis. Review of Systems Review of Systems: cv - no chest pain pulm - no cough or dyspnea GI - no bloating or pain Physical Exam Physical Exam: gen - sitting in chair comfortably, awake, alert neck - c-collar in place; dressings intact R ant neck; drain in place mouth - MMM heart - RRR, s1 s2 lungs - decreased BS R base, otherwise CTA b/l abd - soft NT ND BS+ ext - no edema, pulses 2+ b/l Results & Data Results & Data ([facility]) Vital Signs (Past 12 Hours) Vital Signs Temp Pulse Resp BP Pulse Ox 07/01/21 11:33 145/84 H 07/01/21 11:30 85 16 97 07/01/21 09:30 93 H 16 147/76 H 97 07/01/21 07:33 36.6 C 86 16 138/78 95 07/01/21 07:00 87 18 94 07/01/21 05:16 36.5 C 89 16 135/80 96 07/01/21 03:45 87 18 96 07/01/21 03:11 36.6 C 96 H 16 142/78 H 96 07/01/21 01:12 36.6 C 93 H 16 146/75 H 95 Laboratory Results Laboratory Results - last 24 hr 07/01/21 07/01/21 05:26 05:26 WBC 10.85 H RBC 3.59 L Hgb 10.9 L Hct 32.5 L MCV 90.5 MCH 30.4 MCHC 33.5 RDW Std Deviation 44.7 RDW Coeff of Monse 13.5 Plt Count 311 MPV 10.1 Immature Gran % (Auto) 0.3 Neut % (Auto) 68.5 Lymph % (Auto) 24.1 [place] % (Auto) 6.1 Eos % (Auto) 0.8 Baso % (Auto) 0.2 Neut # (Auto) 7.44 H Lymph # (Auto) 2.61 [place] # (Auto) 0.66 H Eos # (Auto) 0.09 Baso # (Auto) 0.02 Immature Gran # (Auto) 0.03 H Sodium 139 Potassium 3.5 Chloride 101 Carbon Dioxide 31 Anion Gap 7 BUN 12 Creatinine 0.77 Est Cr Clr Drug Dosing 88.9 Est GFR ( Amer) 93.3 Est GFR (Non-Af Amer) 80.5 BUN/Creatinine Ratio 15.6 Glucose 103 H Calcium 8.6 Total Bilirubin 0.4 AST 31 ALT 41 Alkaline Phosphatase 102 Total Protein 6.8 Albumin 3.5 Globulin 3.3 Albumin/Globulin Ratio 1.1 PG Care Time/CCT Total # of Minutes Spent Total Time Spent with Patient: Total time spent is greater than 50% in coordination of care (as documented) at patient's floor/unit and/or counseling patient: Coding Level of Care Code 51235 Subseq Hosp Care Lvl 1 Diagnoses Cervical stenosis of spinal canal M48.02 Chronic obstructive pulmonary disease J44.9 Sleep apnea G47.30 Hypertension I10 GERD (gastroesophageal reflux disease) K21.9 Hyperlipidemia E78.5 HX: breast cancer Z85.3 Psoriasis L40.9
--- NOTE | 2021-07-01 13:20 | Discharge Summary ---
Date of Service July 01, 2021 Admission HPI Per Admitting Provider This is a 65-year-old female who presents with worsening cervical radiculopathy. Of failed extensive course of nonoperative care she is here for surgical invention. Principal Diagnosis Cervical spinal stenosis with radiculopathy Discharge Data Allergies Allergy/AdvReac Type Severity Reaction Status Date / Time adhesive tape Allergy Severe Rash Verified 06/30/21 08:40 amitriptyline Allergy Severe "suicidal" Verified 06/30/21 08:40 amlodipine [From Caduet] Allergy Severe Difficulty Verified 06/30/21 08:40 Breathing atorvastatin [From Caduet] Allergy Severe Difficulty Verified 06/30/21 08:40 Breathing celecoxib [From Celebrex] Allergy Severe Difficulty Verified 06/30/21 08:40 Breathing diclofenac Allergy Severe Rash Verified 06/30/21 08:40 hydromorphone [From Dilaudid] Allergy Severe Vomiting Verified 06/30/21 08:40 Iodinated Contrast Media Allergy Severe Hives Verified 06/30/21 08:40 [Iodinated Contrast- Oral and IV Dye] iodine Allergy Severe Hives Verified 06/30/21 08:40 nortriptyline Allergy Severe "suicidal" Verified 06/30/21 08:40 oxaprozin Allergy Severe "swollen Verified 06/12/21 14:22 neck glands" phenol Allergy Severe Rash Verified 06/12/21 14:22 Consultations 06/30/21 13:12 Consult Hospitalist Routine Procedures Performed Operation Date: 06/30/21 09:45 Actual Procedures p C5-C7 Anterior Cervical Discectomy and Fusion, Spinal Cord Monitoring(Not Applicable) - Robbie Coleman, Ordered Studies 06/30/21 09:45 FL cervical 2-3V Routine Hospital Course (1) Cervical stenosis of spinal canal: Patient underwent intracervical discectomy and fusion tolerates well stable orthopedic floor postoperative. Postop day #1 she was swallowing well no hoarseness or symptoms are improved. JOHANNY drain decreasing probably. Pain well controlled. Excellent strength testing. Subsequently discharged home. Discharge orders and instructions can be found chart for further review. Total Time Total Time Spent Total Time Spent (In Minutes): 20 minutes Discharge Plan Discharge Items Patient Disposition: Home - Self-Care Reason For Visit: Spinal Stenosis, Cervical Region Discharge Diagnosis: Cervical spinal stenosis with radiculopathy Activity: As commented below Non-emergency contact: Primary Care Provider Call non-emergency contact if: you have any medication questions Follow-up/Referrals: Robbie Coleman DO [Surgeon] - 07/14/21 1:00 pm (APPT WITH BARBRA CHADWICK PA-C) Margarita Lopez PA-C [Outside Practitioners] - Diet: Regular Addtl Attending Provider Instructions: ACTIVITY RECOMMENDATIONS: SELF CARE INSTRUCTIONS AFTER CERVICAL FUSIONS 1. No smoking. Smoking drastically decreases the chance of a solid fusion. 2. No bending, lifting more than 5 pounds, or twisting (roll like a log when turning in bed). 3. You may shower 3 days after surgery. Thoroughly dry wound. Do not soak in the tub. 4. Cervical collar: Must be worn at all times including sleeping. You may remove the brace only to bath, eat and if you are sitting in a recliner. 5. Please walk as much as you can for exercise. Gradually increase the distance that you walk as your endurance increases. SPECIAL CARE INSTRUCTIONS: VERY IMPORTANT TO READ AND REVIEW A. Do not take any anti-inflammatory medications (i.e. Indocin, Advil, Aspirin, Naprosyn, Aleve, Motrin, etc.) as these may inhibit the chance of a solid fusion. Tylenol is okay to take. B. Your surgical incision has been closed with a cosmetic suture under the skin that will dissolve in about 6 weeks. In 14 days, you can use a pair of clean scissors and cut the suture that is left outside of the skin at the ends of your incision. C. Complications are uncommon, but please contact us if you have any signs or symptoms of: 1. wound infection (fever higher than 102.5 degrees F, redness, separation of wound, drainage, or increasing pain from the incision) 2. blood clots in legs (pain, swelling, redness and warmth in legs) 3. urinary tract infection (fever higher than 102.5 degrees, burning upon urination or increased frequency of urination) 4. nerve problems (inability to walk on your toes or heels, numbness, loss of bowel or bladder control) 5. any other symptoms that concern you. D. Please call the office at if you have any concerns or questions about your operation or recovery. MANAGING PAIN AFTER SPINAL SURGERY 1. Narcotic medication is intended for short-term use and will be provided for surgical pain. Surgical pain usually lasts for a period of 4-6 weeks. Narcotic medication includes Percocet, Vicodin, Darvocet, Tylenol #3 or Lortab. 2. Longer-term pain is more appropriately treated with non-narcotic medication such as Tylenol ES. 3. Muscle spasm is not appropriately treated with narcotics. Muscle relaxers such as Soma, Flexeril or Skelaxin can be used along with Tylenol ES. 4. Remember that we all live with some "aches and pains". This is not unusual or uncommon after an injury or as we get older. 5. We will provide appropriate medication within the normal guidelines of their prescribed use. We will also be very cautious and aware of potential abuse and extended duration of patients' medication needs. 6. Please allow 2-3 days to process refills. Prescriptions will not be mailed but must be picked up at the office. FOLLOW UP VISIT: Keep your scheduled follow-up appointment. Any questions, please call the office at . Addtl Java Technical Architect Provider Instructions: From the [facility] Hospitalist team - 1. if you have any persistent swallowing difficulty please let Dr Coleman's office know 2. for constipation - if miralax/fiber/stool softeners are not effective - you may need to add in senna (senakot) while taking any prescription pain killer medication 3. you can resume your losartan blood pressure medication upon return home today. Continue to check your blood pressures twice daily at home. If your systolic blood pressure (top number) remains over 140 consistently then please resume your hydrochlorothiazide medication at that time. of note - your potassium level today was normal at 3.5. Pending Studies at Discharge: No Stand-Alone Forms: My [facility], Opioid Pain Management, Smoking Cessation Medications and DC Order Prescriptions: New tramadol 50 mg tablet 50 mg PO Q6H PRN (Reason: pain, moderate) Qty: 20 RF: 0 oxycodone 5 mg tablet 5 mg PO Q6H PRN (Reason: pain, severe) Qty: 20 RF: 0 Continued Complete Multivitamin tablet 1 tab PO QDD RF: 0 simvastatin 20 mg tablet 20 mg PO QPM RF: 0 (DME) CPAP Supplies Misc See Dose Instructions .ROUTE .MEDSUPPLY Qty: 1 RF: 0 albuterol sulfate [ProAir HFA] 90 mcg/actuation HFA aerosol inhaler 2 puff INH Q6H PRN (Reason: shortness of breath or wheezing) Qty: 1 RF: 2 chlorpheniramine maleate [Allergy (chlorpheniramine)] 4 mg tablet 4 mg PO Q6H Qty: 30 RF: 0 pseudoephedrine HCl [Sudafed] 30 mg tablet 30 mg PO Q12H Qty: 30 RF: 0 fluticasone propionate [Flonase Allergy Relief] 50 mcg/actuation spray,suspension 2 spray intranasal DAILY Qty: 16 RF: 2 pantoprazole 40 mg tablet,delayed release (DR/EC) 40 mg PO QAM RF: 0 Daily Probiotic (S. boulardii) 250 mg capsule 250 mg PO QDD RF: 0 zinc acetate 25 mg (zinc) capsule 25 mg PO QDD RF: 0 furosemide [Lasix] 20 mg tablet 20 mg PO DAILY PRN (Reason: Edema) RF: 0 aspirin 325 mg Tablet 325 mg PO HS RF: 0 diphenhydramine HCl [Benadryl] 25 mg Capsule 25 mg PO HS RF: 0 docusate sodium [Stool Softener] 100 mg Capsule 100 mg PO HS RF: 0 hydrochlorothiazide 25 mg Tablet 25 mg PO QAM RF: 0 polyethylene glycol 3350 [Miralax] 17 gram/dose Powder 17 g PO QAM RF: 0 losartan 100 mg Tablet 100 mg PO QAM RF: 0 fiber Capsule 1 cap PO QAM RF: 0 omega-3 fatty acids 1,000 mg capsule 1,000 mg PO QDD RF: 0 Spiriva Respimat 2.5 mcg/actuation mist 2 puff INH QAM RF: 0 Discharge Orders: Discharge Order (Routine); Ordered 07/01/21 Ordered By: Robbie Coleman Admission Data Admit Date/Time: 06/30/21 11:20 Attending Provider: Robbie Coleman Admit Provider: Robbie Coleman Primary Care Provider: Robbie Bach Other Providers: Suraj Hough Other Interventions: Discharge Summary Assessment (RN) Last Done: 07/01/21 12:06
== END 2021-07-01 15:01 | disposition home or self-care (01) | DRG 473 ==
LOC: ASU 08:11 → PACUINP 11:20 → 3E 14:56
DX: M54.12 Radiculopathy, cervical region; E78.5 Hyperlipidemia, unspecified; Z98.51 Tubal ligation status; G47.33 Obstructive sleep apnea (adult) (pediatric); J44.9 Chronic obstructive pulmonary disease, unspecified; Z91.048 Other nonmedicinal substance allergy status; M48.02 Spinal stenosis, cervical region; Z96.652 Presence of left artificial knee joint; Z98.818 Other dental procedure status; I10 Essential (primary) hypertension; Z87.891 Personal history of nicotine dependence; Z91.041 Radiographic dye allergy status; L40.9 Psoriasis, unspecified; Z90.09 Acquired absence of other part of head and neck; Z85.3 Personal history of malignant neoplasm of breast; M19.90 Unspecified osteoarthritis, unspecified site; Z88.8 Allergy status to other drugs, medicaments and biological substances; Z88.6 Allergy status to analgesic agent; Z88.5 Allergy status to narcotic agent